=== PATIENT | male | born 1980 | race Two or more races ===

== ENCOUNTER 2020-07-24 08:30 | Emergency (ER) | payer MEDICAID, OTHER, SELFPAY ==
[~2020-07-24] VITALS: Ht 177.8 cm; Wt 104.0 kg
[2020-07-24 09:18] LABS: BASOPHILS % (AUTO) 0 % (0-1); EOSINOPHILS % (AUTO) 1 % (1-7); LYMPHOCYTES % (AUTO) 13 % (22-44); MEAN CORPUSCULAR HEMOGLOBIN 30.6 pg (27.5-34.5); MEAN CORPUSCULAR HGB CONC 33.3 g/dL (33.2-36.2); MONOCYTES % (AUTO) 9 % (2-9); NEUTROPHILS % (AUTO) 77 % (42-75); PLATELET COUNT 218 x10^3/uL (130-400); RED BLOOD COUNT 4.79 x10^6/uL (4.38-5.82); RED CELL DISTRIBUTION WIDTH 13.4 % (9.4-14.8)
[2020-07-24 09:19] LABS: MD NO
--- NOTE | 2020-07-24 09:22 | NUR ---
PT IN US AT THIS TIME. PT AWARE URINE SAMPLE IS REQUIRED AND WAS PROVIDED WITH CUP. PT IN HOSPITAL GOWN AND WAS PLACED ON VITALS MONITORS.
[2020-07-24 09:50] LABS: ALANINE AMINOTRANSFERASE 27 U/L (12-78); ALBUMIN 3.1 g/dL (3.4-5.0); CALCIUM 8.3 mg/dL (8.5-10.1); CREATININE 1.11 mg/dL (0.7-1.3)
[2020-07-24 09:57] LABS: ALKALINE PHOSPHATASE 145 U/L (45-117); ANION GAP 6 mmol/L (5-15); BILIRUBIN,TOTAL 0.6 mg/dL (0.2-1.0); CHLORIDE 105 mmol/L (98-107); TOTAL PROTEIN 9.1 g/dL (6.4-8.2)
--- NOTE | 2020-07-24 10:00 | NUR ---
PT ABLE TO PROVIDE URINE SAMPLE. URINE WALKED TO LAB. PT RESTING IN BED WITH EYES CLOSED AT THIS TIME. WILL CONTINUE TO MONITOR.
[2020-07-24 10:19] LABS: MICROSCOPIC INDICATED
[2020-07-24] MEDS ORDERED: CEFTRIAXONE 250 MG IM ONE (10:30)
[2020-07-24] MEDS ORDERED: AZITHROMYCIN 500 MG TABLET PO ONE (10:30)
[2020-07-24] MEDS ORDERED: CEFTRIAXONE 250 MG ONE (10:33)
[2020-07-24] MEDS ORDERED: AZITHROMYCIN 250 MG TABLET ONE (10:34)
[2020-07-24 11:04] VITALS: BP 118/75
== END 2020-07-24 11:05 | disposition home or self-care (01) ==
LOC: ED 10:16
DX: N45.1 Epididymitis (principal); N43.3 Hydrocele, unspecified; F17.210 Nicotine dependence, cigarettes, uncomplicated; Z91.14 Patient's other noncompliance with medication regimen
CPT/HCPCS: 36415; 76870; 80053; 81001; 85025; 87086; 87491; 87591; 96372; 99284; 99406; J0696

== ENCOUNTER 2021-05-10 10:59 | Emergency (ER) | payer MEDICAID ==
[~2021-05-10] VITALS: Ht 154.9 cm; Wt 102.0 kg
[2021-05-10 11:35] VITALS: BP 133/95
[2021-05-10 12:27] LABS: BASOPHILS % (AUTO) 1 % (0-1); EOSINOPHILS % (AUTO) 5 % (1-7); LYMPHOCYTES % (AUTO) 19 % (22-44); MEAN CORPUSCULAR HGB CONC 33.9 g/dL (33.2-36.2); MEAN PLATELET VOLUME 8.1 fL (7.4-10.4); MONOCYTES % (AUTO) 10 % (2-9); NEUTROPHILS % (AUTO) 65 % (42-75); PLATELET COUNT 215 x10^3/uL (130-400); RED BLOOD COUNT 4.82 x10^6/uL (4.38-5.82); RED CELL DISTRIBUTION WIDTH 13.9 % (9.4-14.8)
[2021-05-10 12:39] LABS: ALANINE AMINOTRANSFERASE 37 U/L (12-78); ALBUMIN 3.1 g/dL (3.4-5.0); CHLORIDE 108 mmol/L (98-107); CREATININE 1.05 mg/dL (0.7-1.3)
[2021-05-10 12:43] LABS: ALKALINE PHOSPHATASE 133 U/L (45-117); ANION GAP < 1 mmol/L (5-15); BILIRUBIN,TOTAL 0.4 mg/dL (0.2-1.0); TOTAL PROTEIN 8.4 g/dL (6.4-8.2)
--- NOTE | 2021-05-10 14:10 | NUR ---
NOTIFIED BY REG THAT PT HAS LEFT. AMA FORM SIGNED.
== END 2021-05-10 14:12 | disposition left against medical advice (07) ==
LOC: ED 13:50
DX: R60.0 Localized edema (principal)
CPT/HCPCS: 36415; 80053; 82962; 83880; 85025; 93970; 99284